=== PATIENT | female | born 1945 | race Caucasian/White ===

== ENCOUNTER 2020-07-25 09:40 | Observation (INO) ==
[2020-07-25 11:33] LABS: Basophils % 0.4 %; Eosinophils # 0.1 K/mcL (0.0-0.6); Eosinophils % 1.2 %; Hematocrit 41.2 % (35.3-44.9); Hemoglobin 12.8 g/dL (11.5-15.4); Immature Granulocytes % 0.9 % (0-4); Lymphocytes # 1.4 K/mcL (0.6-4.6); Lymphocytes % 14.2 %; Mean Corpuscular HGB Conc 31.1 g/dL (31.6-35.5); Mean Corpuscular Hemoglobin 31.8 pg (28.0-33.3); Mean Corpuscular Volume 102.5 fL (83.0-100.0); Mean Platelet Volume 9.7 fL (9.4-12.4); Monocytes # 0.7 K/mcL (0.0-1.3); Monocytes % 6.5 %; Neutrophils # 7.7 K/mcL (1.6-8.9); Platelet Count 238 K/mcL (140-400); Red Blood Count 4.02 M/mcL (3.82-4.97); Segmented Neutrophils % 76.8 %
[2020-07-25 11:42] LABS: INR 1.1; Prothrombin Time 12.8 Seconds (9.4-12.1)
[2020-07-25 11:52] LABS: BUN/Creatinine Ratio 34 (6-26); Blood Urea Nitrogen 46 mg/dL (8-23); Calcium 9.7 mg/dL (8.6-10.3); Carbon Dioxide 21 mEq/L (23-29); Chloride 106 mEq/L (98-107); Glucose 153 mg/dL (70-105); Osmolality,Calculated 303 (280-300); Potassium 4.3 mEq/L (3.5-5.1); Sodium 139 mEq/L (136-145); Troponin I < 0.03 ng/mL (< 0.04); eGFR For African Americans 47 (> 60); eGFR For Non-African Americans 39 (> 60)
[2020-07-25] MEDS ORDERED: Naloxone 0.4 MG/ML INJ IVP PRN (17:28)
[2020-07-25] MEDS ORDERED: Ondansetron 4 MG/2 ML VIAL IVP PRN (17:28)
[2020-07-25] MEDS ORDERED: Albumin 25% 25gram/100mL 25 GM/100 ML IV.SOLN IVPB ONE (17:32)
[2020-07-25] MEDS ORDERED: Furosemide 40 MG/4 ML VIAL IVP ONE ×2 (17:33→22:30)
[2020-07-25] MEDS ORDERED: Perflutren Lipid Microsphere 1.3 ML in 0.9 % Sodium Chloride 8.7 ML IVP PRN (17:44)
[2020-07-25] MEDS ORDERED: D5% in Water 1,000 ML IVC PRN (17:57)
[2020-07-25] MEDS ORDERED: *HR* Dextrose 50 % in Water (Vial) 50 ML VIAL IVP PRN (17:57)
[2020-07-25] MEDS ORDERED: Dextrose Gel 15 GM/37.5 ML TUBE PO PRN ×2 (17:57)
[2020-07-25] MEDS: Insulin LISPRO 300 UNITS/3 ML VIAL SUBQ SCH (20:58)
[2020-07-25] MEDS: *HR* Heparin 5,000 UNIT/ML VIAL SQ SCH (21:04)
[2020-07-25] MEDS: Acetaminophen 325 MG TABLET PO SCH (21:05)
[2020-07-25 22:34] LABS: Estimated Average Glucose 220 mg/dl; Hemoglobin A1C 9.3 %
[2020-07-26 02:12] LABS: Basophils % 0.4 %; Eosinophils # 0.1 K/mcL (0.0-0.6); Eosinophils % 0.9 %; Hematocrit 36.1 % (35.3-44.9); Hemoglobin 11.6 g/dL (11.5-15.4); Immature Granulocytes % 0.8 % (0-4); Lymphocytes # 1.4 K/mcL (0.6-4.6); Lymphocytes % 15.3 %; Mean Corpuscular HGB Conc 32.1 g/dL (31.6-35.5); Mean Corpuscular Hemoglobin 33.1 pg (28.0-33.3); Mean Corpuscular Volume 103.1 fL (83.0-100.0); Monocytes # 0.6 K/mcL (0.0-1.3); Monocytes % 6.9 %; Neutrophils # 6.9 K/mcL (1.6-8.9); Platelet Count 210 K/mcL (140-400); Red Cell Distribution Width 16.8 % (11.5-14.5); Segmented Neutrophils % 75.7 %; White Blood Count 9.1 K/mcL (4.3-11.1)
[2020-07-26 02:32] LABS: Albumin 3.7 g/dL (3.5-5.7); Albumin/Globulin Ratio 1.7 (1.1-2.2); Bilirubin,Total 0.7 mg/dL (0.3-1.0); Calcium 9.6 mg/dL (8.6-10.3); Chol/HDL Ratio 2.8 (0-4.9); Globulin 2.2 g/dL (2.4-3.5); Potassium 4.1 mEq/L (3.5-5.1); Total Protein 5.9 g/dL (6.4-8.9)
[2020-07-26] MEDS ORDERED: Vancomycin 1,500 MG/265 ML IV.SOLN IVPB SCH (06:00)
[2020-07-26] MEDS: *HR* Heparin 5,000 UNIT/ML VIAL SQ SCH ×2 (06:01→16:38)
[2020-07-26] MEDS: Insulin LISPRO 300 UNITS/3 ML VIAL SUBQ SCH ×4 (08:01→20:14)
[2020-07-26] MEDS: Acetaminophen 325 MG TABLET PO SCH ×2 (08:02→20:17)
[2020-07-26] MEDS: Multivit/Ca/Min/Fe/FA 1 TAB TABLET PO SCH (08:02)
[2020-07-26] MEDS ORDERED: amLODIPine 5 MG TABLET PO SCH (09:00)
[2020-07-26 11:43] LABS: Uric Acid 6.6 mg/dL (2.3-7.6)
[2020-07-26] MEDS ORDERED: hydrALAZINE 25 MG TABLET PO PRN (14:15)
[2020-07-26 18:49] LABS: Bilirubin,Urine Negative (Negative); Blood,Urine Negative (Negative); Clarity,Urine Clear (Clear); Color,Urine Light-Yellow (Yellow); Glucose,Urine (UA) Normal (Normal); Ketones,Urine Negative (Negative); Leukocyte Esterase,Urine Trace (Negative); Nitrite,Urine Negative (Negative); PH,Urine 5.5 pH Units (5.0-8.0); Protein,Urine Negative (Neg-Trace); RBC,Urine 0-3 per hpf (0-3); Specific Gravity,Urine 1.021 (1.010-1.025); Squamous Epithelial Cell,Urine Few per hpf (None-Few); Urobilinogen,Urine Normal (Normal); WBC,Urine 0-3 per hpf (0-3)
[2020-07-26 18:59] LABS: Sodium, Urine 92.4 mEq/L
[2020-07-26] MEDS: Nystatin POWDER 30 GM BOTTLE TP SCH (20:17)
[2020-07-26 23:20] LABS: Acinetobacter baumannii by PCR Not Detected (Not Detect); Candida albicans by PCR Not Detected (Not Detect); Candida glabrata by PCR Not Detected (Not Detect); Candida krusei by PCR Not Detected (Not Detect); Candida parapsilosis by PCR Not Detected (Not Detect); Candida tropicalis by PCR Not Detected (Not Detect); Enterobacter cloacae Cmplx PCR Not Detected (Not Detect); Enterobacteriaceae by PCR Not Detected (Not Detect); Enterococcus by PCR Not Detected (Not Detect); Escherichia coli by PCR Not Detected (Not Detect); Klebsiella oxytoca by PCR Not Detected (Not Detect); Klebsiella pneumoniae by PCR Not Detected (Not Detect); Proteus by PCR Not Detected (Not Detect); Pseudomonas aeruginosa by PCR Not Detected (Not Detect); Serratia marcescens by PCR Not Detected (Not Detect); Staphylococcus aureus by PCR Not Detected (Not Detect); Staphylococcus by PCR DETECTED (Not Detect); Streptococcus agalactiae(B)PCR Not Detected (Not Detect); Streptococcus by PCR Not Detected (Not Detect); Streptococcus pneumoniae PCR Not Detected (Not Detect); Streptococcus pyogenes (A) PCR Not Detected (Not Detect); mecA Methicillin-Resist Gene Not Detected (Not Detect)
[2020-07-27 05:26] LABS: Basophils % 0.6 %; Eosinophils # 0.1 K/mcL (0.0-0.6); Eosinophils % 1.8 %; Hematocrit 33.9 % (35.3-44.9); Hemoglobin 10.6 g/dL (11.5-15.4); Immature Granulocytes % 0.6 % (0-4); Lymphocytes # 1.3 K/mcL (0.6-4.6); Lymphocytes % 21.1 %; Mean Corpuscular HGB Conc 31.3 g/dL (31.6-35.5); Mean Corpuscular Hemoglobin 32.5 pg (28.0-33.3); Monocytes # 0.8 K/mcL (0.0-1.3); Monocytes % 12.5 %; Platelet Count 162 K/mcL (140-400); Red Blood Count 3.26 M/mcL (3.82-4.97); Red Cell Distribution Width 16.4 % (11.5-14.5); Segmented Neutrophils % 63.4 %; White Blood Count 6.3 K/mcL (4.3-11.1)
[2020-07-27] MEDS: *HR* Heparin 5,000 UNIT/ML VIAL SQ SCH ×2 (05:31→16:04)
[2020-07-27 05:45] LABS: Calcium 9.1 mg/dL (8.6-10.3); Potassium 3.9 mEq/L (3.5-5.1)
[2020-07-27] MEDS: Acetaminophen 325 MG TABLET PO SCH ×2 (07:24→20:35)
[2020-07-27] MEDS: Nystatin POWDER 30 GM BOTTLE TP SCH ×2 (07:25→20:40)
[2020-07-27] MEDS: Insulin LISPRO 300 UNITS/3 ML VIAL SUBQ SCH ×4 (07:25→20:37)
[2020-07-27] MEDS: Multivit/Ca/Min/Fe/FA 1 TAB TABLET PO SCH (07:25)
[2020-07-27] MEDS: hydrALAZINE 25 MG TABLET PO SCH (16:04)
[2020-07-27] MEDS: Furosemide 20 MG TABLET PO SCH (16:04)
[2020-07-28] MEDS: hydrALAZINE 25 MG TABLET PO SCH ×2 (00:04→09:03)
[2020-07-28 01:14] LABS: Basophils % 0.5 %; Eosinophils # 0.1 K/mcL (0.0-0.6); Eosinophils % 1.8 %; Hematocrit 34.2 % (35.3-44.9); Hemoglobin 10.8 g/dL (11.5-15.4); Immature Granulocytes % 1.2 % (0-4); Lymphocytes # 1.1 K/mcL (0.6-4.6); Lymphocytes % 18.9 %; Mean Corpuscular HGB Conc 31.6 g/dL (31.6-35.5); Mean Corpuscular Volume 101.2 fL (83.0-100.0); Mean Platelet Volume 10.1 fL (9.4-12.4); Monocytes # 0.6 K/mcL (0.0-1.3); Monocytes % 10.1 %; Platelet Count 172 K/mcL (140-400); Red Blood Count 3.38 M/mcL (3.82-4.97); Red Cell Distribution Width 16.1 % (11.5-14.5); Segmented Neutrophils % 67.5 %
[2020-07-28 01:36] LABS: Calcium 8.9 mg/dL (8.6-10.3)
[2020-07-28] MEDS: Furosemide 20 MG TABLET PO SCH (06:36)
[2020-07-28] MEDS: *HR* Heparin 5,000 UNIT/ML VIAL SQ SCH (06:37)
[2020-07-28] MEDS: Acetaminophen 325 MG TABLET PO SCH (09:03)
[2020-07-28] MEDS: Multivit/Ca/Min/Fe/FA 1 TAB TABLET PO SCH (09:03)
[2020-07-28] MEDS: Insulin LISPRO 300 UNITS/3 ML VIAL SUBQ SCH ×2 (09:06→12:30)
[2020-07-28] MEDS: Nystatin POWDER 30 GM BOTTLE TP SCH (09:06)
[2020-07-28 11:00] VITALS: BP 127/67
[2020-07-28 11:15] LABS: Thyroid Stimulating Hormone 0.036 mcIU/mL (0.340-5.600)
== END 2020-07-28 15:40 | disposition home or self-care (01) ==
LOC: 2ANU 09:40 → EMEROOARM 09:40 → SUATTDRO 19:20 → 2ANU 20:08
PROVIDERS: ADMIT Internal Medicine; ATTEND Internal Medicine